=== PATIENT | female | born 1985 ===

== ENCOUNTER 2022-01-03 05:17 | Day surgery (SDC) | payer OTHER ==
[2022-01-03] MEDS ORDERED: PERCOCET 5-3251 EACH PO (08:35)
== END 2022-01-03 16:20 | disposition home or self-care (01) ==
LOC: CIR.AMB 05:17
PROVIDERS: ATTEND Surgery
DX: K64.8 Other hemorrhoids (principal); Z91.013 Allergy to seafood; Z86.16 Personal history of COVID-19; J45.909 Unspecified asthma, uncomplicated; Z20.822 Contact with and (suspected) exposure to COVID-19